=== PATIENT | female | born 1960 | race Caucasian/White ===

== ENCOUNTER → 2016-12-14 | Outpatient (CLI) | payer OTHER ==
--- NOTE | ~2016-12-14 | CT2 ---
[facility] A Service of [facility] RADIOLOGY TEXT RESULTS PATIENT: NEVA SARAH LOCATION: [facility] : 62 UNIT #: [id number] AGE: [address]: Haroldo Do MD SEX: F ORDER DR: [id number] [facility]. [place], [place] [address] [id number] O MR#: [id number] Acc #: [id number] NAME: NEVA SARAH : 1960 SEX: F STUDY DATE/TIME: 12/14/2016 14:32 UNIT: [facility] ROOM: STUDY DESCRIPTION: CT Abd and Pelv W Cont Attending Physician: Haroldo Do M.D., Ph.D. Referring Physician: Haroldo Do M.D., Ph.D. Ordering Physician: Haroldo Do M.D., Ph.D. Primary Care Physician: Generic Doctor Not In System MEDICAL IMAGING REPORT This report is preliminary unless electronic signature is present EXAM CT abdomen and pelvis with contrast INDICATIONS Followup retroperitoneal neoplasm. Routine surveillance TECHNIQUE CT of the abdomen and pelvis was performed following the administration of IV contrast. Coronal and sagittal reformatted images were obtained. The CT exam was performed with one or more of the following radiation dose reduction techniques: automatic exposure control, adjustment of mA and/or kV according to patient size, and iterative reconstruction. Comparison is made with 04/14/2016. FINDINGS The lung bases are clear. Stable presumed tiny cysts within the liver. The gallbladder is unremarkable. The spleen is normal. Stable cysts within the kidneys. Stable 2.4 cm soft tissue mass in the left retroperitoneum adjacent to the left renal hilum. The adrenal glands are unremarkable. Pancreas is unremarkable. PELVIS: Large amount of stool in the rectum. This may indicate constipation. Correlate clinically. Colon otherwise unremarkable. Normal appendix. No free fluid. Bone windows are unremarkable. IMPRESSION 1. Stable left retroperitoneal mass. 2 Additional findings as described. Dictated by... [facility] A Service of [facility] RADIOLOGY TEXT RESULTS PATIENT: NEVA SARAH LOCATION: [facility] : 62 UNIT #: [id number] AGE: [address]: Haroldo Do MD SEX: F ORDER DR: Arun Crain M.D. THIS IS AN ELECTRONICALLY VERIFIED REPORT Arun Crain M.D. at 12/16/2016 7:22 AM GABRIEL/amos TD: 12/15/2016 10:04 JOB #: [id number] MEDICAL IMAGING REPORT Page 1 of 1 COPY
[2016-12-14 21:26] LABS: POC - CREATININE 0.77 mg/dL (0.44-1.03); POC - GFR >60.0 mL/min (>60)
== END | disposition home or self-care (01) ==
LOC: CCAT 11-23 13:00
PROVIDERS: Internal Medicine Hematology & Oncology
DX: C48.0 Malignant neoplasm of retroperitoneum (principal)
CPT/HCPCS: 74177; 82565; Q9967